=== PATIENT | female | born 2000 | race Hispanic/Latino ===

== ENCOUNTER 2019-05-01 04:39 | Emergency (ER) | payer OTHER ==
[2019-05-01] MEDS ORDERED: FAMOTIDINE 20MG TAB 20 MG TAB ONE (05:03)
[2019-05-01] MEDS ORDERED: DiphenhydrAMINE HCL 50 MG/ML VIAL ONE (05:03)
[2019-05-01] MEDS ORDERED: PREDNISONE 20 MG TABLET ONE (05:03)
[2019-05-01] MEDS ORDERED: ALBUTEROL SULFATE 0.083% 2.5 MG/3 ML INH IH ONE (05:06)
== END 2019-05-01 05:44 | disposition home or self-care (01) ==
LOC: EDH 04:39
DX: L50.0 Allergic urticaria (principal); R21 Rash and other nonspecific skin eruption
CPT/HCPCS: 94640; 96372; 99283; J1200

== ENCOUNTER 2019-10-10 01:22 | Emergency (ER) | payer OTHER ==
[2019-10-10 01:49] LABS: BILIRUBIN,URINE Negative (NEGATIVE); COLOR,URINE Yellow (YELLOW); GLUCOSE, URINE (UA) Negative (NEGATIVE); KETONES,URINE Negative (NEGATIVE); LEUKOCYTE ESTERASE ,URINE Negative (NEGATIVE); NITRATE,URINE Negative (NEGATIVE); OCCULT BLOOD,URINE Negative (NEGATIVE); PROTEIN,URINE Negative (NEGATIVE); UROBILINOGEN,URINE 0.2 mg/dL (0.2-1.0)
[2019-10-10 01:50] LABS: APPEARANCE,URINE CLEAR (CLEAR)
[2019-10-10 01:52] LABS: HCG,QUAL RESULT NEGATIVE (NEGATIVE)
[2019-10-10] MEDS ORDERED: ONDANSETRON ODT 4 MG TAB ONE (02:15)
[2019-10-10 02:23] LABS: BASOPHILS % (AUTO) 0.3 % (0.0-5.0); EOSINOPHILS % (AUTO) 0.3 % (0.0-8.0); HEMATOCRIT 37.6 % (36-48); LYMPHOCYTES % (AUTO) 15.6 % (21.0-51.0); MEAN CORPUSCULAR HEMOGLOBIN 24.9 pg (27.0-33.0); MEAN CORPUSCULAR HGB CONC 31.4 g/dL (32.0-36.0); MEAN CORPUSCULAR VOLUME 79.5 fL (80-100); MONOCYTES % (AUTO) 6.2 % (3.0-13.0); NEUTROPHILS % (AUTO) 77.1 % (40.0-77.0); PLATELET COUNT (AUTO) 271 K/uL (130-400); RED BLOOD CELL COUNT(AUTO) 4.73 MIL/uL (4.00-5.50); RED CELL DISTRIBUTION WIDTH 14.3 % (11.0-15.5); WHITE BLOOD COUNT (AUTO) 11.5 K/uL (4.8-10.8)
[2019-10-10 02:40] LABS: CREATININE 0.7 mg/dL (0.5-1.5); POTASSIUM 3.9 mmol/L (3.5-5.1)
[2019-10-10 02:44] LABS: ALBUMIN 3.4 g/dL (3.5-5.0); BILIRUBIN,TOTAL 0.2 mg/dL (0.2-1.0); TOTAL PROTEIN, SERUM 8.2 g/dL (6.0-8.3)
== END 2019-10-10 04:11 | disposition home or self-care (01) ==
LOC: EDH 01:22
DX: R07.89 Other chest pain (principal); R42 Dizziness and giddiness
CPT/HCPCS: 36415; 71045; 80053; 81003; 81025; 85025; 93005

== ENCOUNTER 2021-01-11 20:15 | Emergency (ER) | payer OTHER ==
[~2021-01-11] VITALS: Ht 167.6 cm; Wt 115.2 kg
[2021-01-11 20:21] VITALS: BP 133/89
[2021-01-11] MEDS ORDERED: FAMOTIDINE 20MG TAB 20 MG TAB PO ONE (20:30)
[2021-01-11] MEDS ORDERED: DiphenhydrAMINE HCL 50 MG/ML VIAL IM ONE (20:30)
[2021-01-11] MEDS ORDERED: DiphenhydrAMINE HCL 50 MG/ML VIAL ONE (20:32)
[2021-01-11 21:03] VITALS: BP 123/71
== END 2021-01-11 21:03 | disposition home or self-care (01) ==
LOC: EDH 20:15
DX: O99.711 Diseases of the skin and subcutaneous tissue complicating pregnancy, first trimester (principal); L50.0 Allergic urticaria; Z88.2 Allergy status to sulfonamides; Z3A.10 10 weeks gestation of pregnancy
CPT/HCPCS: 96372; 99283; J1200

== ENCOUNTER 2021-08-05 08:45 | Inpatient (IN) | payer BC, OTHER ==
[~2021-08-05] VITALS: Ht 167.6 cm; Wt 114.8 kg
[2021-08-05] MEDS ORDERED: PROMETHAZINE HCL 25 MG/ML 1ML AMPULE IM PRN (11:00)
[2021-08-05] MEDS ORDERED: MEPERIDINE-PF 50 MG/ML SYG IVP PRN (11:00)
[2021-08-05] MEDS ORDERED: OXYTOCIN-LR 20 UNITS/1000 ML 1,000 ML IV SCH (11:00)
[2021-08-05] MEDS: LACTATED RINGERS 1000ML 1,000 ML IV PRN (11:20)
[2021-08-05 11:24] LABS: APPEARANCE,URINE Clear (CLEAR); BILIRUBIN,URINE Negative (NEGATIVE); COLOR,URINE Yellow (YELLOW); GLUCOSE, URINE (UA) Negative (NEGATIVE); KETONES,URINE Negative (NEGATIVE); LEUKOCYTE ESTERASE ,URINE Trace (NEGATIVE); NITRATE,URINE Negative (NEGATIVE); OCCULT BLOOD,URINE Small (NEGATIVE); PROTEIN,URINE Negative (NEGATIVE); UROBILINOGEN,URINE 0.2 mg/dL (0.2-1.0)
[2021-08-05 11:30] LABS: HEMATOCRIT 35.3 % (36-48); MEAN CORPUSCULAR HEMOGLOBIN 24.8 pg (27.0-33.0); MEAN CORPUSCULAR HGB CONC 31.7 g/dL (32.0-36.0); MEAN CORPUSCULAR VOLUME 78.3 fL (79-99); PLATELET COUNT (AUTO) 302 K/uL (130-400); RED BLOOD CELL COUNT(AUTO) 4.51 MIL/uL (4.00-5.50); RED CELL DISTRIBUTION WIDTH 14.8 % (11.0-15.5); WHITE BLOOD COUNT (AUTO) 14.8 K/uL (4.8-10.8)
[2021-08-05 11:46] LABS: BACTERIA,URINE Few /HPF (None Seen); RBC,URINE 0-1 /HPF (0-1); SQUAMOUS EPITHELIAL CELL,UR Rare /HPF (0-2); WBC,URINE 0-1 /HPF (0-1)
[2021-08-06] MEDS: LACTATED RINGERS 1000ML 1,000 ML IV PRN (00:36)
[2021-08-06] MEDS ORDERED: OXYTOCIN-LR 20 UNITS/1000 ML 1,000 ML IV SCH ×2 (10:00→14:30)
[2021-08-06] MEDS ORDERED: ROPIVACAINE 0.2% 100ML VIAL 100 ML EP SCH (11:00)
[2021-08-06] MEDS ORDERED: LACTATED RINGERS 500 ML 500 ML IV PRN (11:00)
[2021-08-06] MEDS ORDERED: NALOXONE HCL 0.4 MG/1 ML ML IV PRN (11:00)
[2021-08-06] MEDS ORDERED: EPHEDRINE SULFATE 50 MG/ML AMPULE IVP PRN (11:00)
[2021-08-06] MEDS ORDERED: ACETAMINOPHEN 325 MG TAB PO PRN (14:30)
[2021-08-06] MEDS ORDERED: WITCH HAZEL 1 PAD TP PRN (14:30)
[2021-08-06] MEDS ORDERED: LANOLIN 30GM OINTMENT TP PRN (14:30)
[2021-08-06] MEDS ORDERED: BENZOCAINE/LANOLIN/ALOE VERA 60 ML AEROSOL TP PRN (14:30)
[2021-08-06] MEDS ORDERED: DIPH,PERTUSS(ACELL),TET VAC/PF 0.5 ML VIAL IM PRN (14:30)
[2021-08-06] MEDS ORDERED: ACETAMINOPHEN WITH CODEINE 1 TAB TAB PO PRN (14:30)
[2021-08-06] MEDS ORDERED: MEASLES/MUMPS/RUBELLA VACCINE, LIVE 0.5 ML/VIAL SQ PRN (14:30)
[2021-08-06 15:00] VITALS: BP 132/74
[2021-08-06 16:00] VITALS: BP 130/73
[2021-08-06 16:09] LABS: HEPATITIS Bs ANTIGEN SCREEN P Negative (Negative)
[2021-08-06 17:00] VITALS: BP 139/78
[2021-08-06] MEDS: IBUPROFEN 600 MG TABLET PO PRN (17:10)
[2021-08-06] MEDS ORDERED: PREN1TAB63 PO (19:19)
[2021-08-06 19:20] VITALS: BP 140/78
[2021-08-06] MEDS: DOCUSATE SODIUM 100 MG CAP PO SCH (20:49)
[2021-08-07] MEDS: IBUPROFEN 600 MG TABLET PO PRN ×2 (00:25→09:00)
[2021-08-07 00:30] VITALS: BP 118/71
[2021-08-07 03:30] VITALS: BP 113/65
[2021-08-07 08:00] VITALS: BP 121/71
[2021-08-07] MEDS: DOCUSATE SODIUM 100 MG CAP PO SCH (09:00)
[2021-08-07 12:00] VITALS: BP 119/74
== END 2021-08-07 14:54 | disposition home or self-care (01) | DRG 807 ==
LOC: EDH 08:45 → OBSVTOIN 08:46 → LDH 08:46 → WSH 08-06 16:40
PROVIDERS: ADMIT Obstetrics & Gynecology; ATTEND Obstetrics & Gynecology
PROC: 10E0XZZ Delivery of Products of Conception, External Approach (ICD-10-PCS; principal; 2021-08-06)
PROC: 0HQ9XZZ Repair Perineum Skin, External Approach (ICD-10-PCS; 2021-08-06)
PROC: 10907ZC Drainage of Amniotic Fluid, Therapeutic from Products of Conception, Via Natural or Artificial Opening (ICD-10-PCS; 2021-08-06)
PROC: 0U7C7ZZ Dilation of Cervix, Via Natural or Artificial Opening (ICD-10-PCS; 2021-08-06)
PROC: 3E0R3BZ Introduction of Anesthetic Agent into Spinal Canal, Percutaneous Approach (ICD-10-PCS; 2021-08-06)
PROC: 00HU33Z Insertion of Infusion Device into Spinal Canal, Percutaneous Approach (ICD-10-PCS; 2021-08-06)
PROC: 3E0234Z Introduction of Serum, Toxoid and Vaccine into Muscle, Percutaneous Approach (ICD-10-PCS; 2021-08-06)
DX: O62.3 Precipitate labor (principal); Z37.0 Single live birth; O70.0 First degree perineal laceration during delivery; Z23 Encounter for immunization; Z3A.39 39 weeks gestation of pregnancy
CPT/HCPCS: 36415; 81001; 85027; 86592; 86701; 86850; 86900; 86901; 87340; 87390; 90715; A4314; G0378; J2175; J2550; J2590; J7120